=== PATIENT | male | born 1980 | race Caucasian/White ===

== ENCOUNTER 2020-07-15 07:44 | Inpatient (IN) ==
[2020-07-15] MEDS ORDERED: 0.9 % Sodium Chloride 1,000 ML IVC ONE (07:53)
[2020-07-15 08:16] LABS: Basophils % 0.6 %; Eosinophils # 0.2 K/mcL (0.0-0.6); Eosinophils % 2.8 %; Hematocrit 44.6 % (37.5-50.1); Hemoglobin 14.8 g/dL (12.9-16.9); Immature Granulocytes % 0.3 % (0-4); Lymphocytes # 1.5 K/mcL (0.6-4.6); Lymphocytes % 22.7 %; Mean Corpuscular HGB Conc 33.2 g/dL (31.6-35.5); Mean Corpuscular Hemoglobin 29.5 pg (28.0-33.3); Mean Platelet Volume 10.3 fL (9.4-12.4); Monocytes # 0.4 K/mcL (0.0-1.3); Monocytes % 5.2 %; Neutrophils # 4.6 K/mcL (1.6-8.9); Platelet Count 216 K/mcL (140-400); Red Blood Count 5.01 M/mcL (4.19-5.50); Red Cell Distribution Width 12.6 % (11.5-14.5); Segmented Neutrophils % 68.4 %; White Blood Count 6.8 K/mcL (4.3-11.1)
[2020-07-15 08:21] LABS: INR 1.2
[2020-07-15] MEDS ORDERED: Isovue-370 500 ML BOTTLE IVP ONE (08:26)
[2020-07-15 08:33] LABS: BUN/Creatinine Ratio 14 (6-26); Blood Urea Nitrogen 15 mg/dL (6-20); Calcium 9.7 mg/dL (8.6-10.3); Carbon Dioxide 26 mEq/L (23-29); Chloride 105 mEq/L (98-107); Glucose 129 mg/dL (70-105); Osmolality,Calculated 289 (280-300); Potassium 4.3 mEq/L (3.5-5.1); Sodium 138 mEq/L (136-145); eGFR For African Americans > 60 (> 60); eGFR For Non-African Americans > 60 (> 60)
[2020-07-15 08:34] LABS: Troponin I < 0.03 ng/mL (< 0.04)
[2020-07-15 09:29] LABS: Adenovirus DETECTED (Not Detect); Bordetella Pertussis Not Detected (Not Detect); Chlamydophila pneumoniae Not Detected (Not Detect); Coronavirus 229E Not Detected (Not Detect); Coronavirus HKU1 Not Detected (Not Detect); Coronavirus NL63 Not Detected (Not Detect); Coronavirus OC43 Not Detected (Not Detect); Human Metapneumovirus Not Detected (Not Detect); Human Rhinovirus/Enterovirus Not Detected (Not Detect); Influenza A Subtype 2009 H1 Not Detected (Not Detect); Influenza B Not Detected (Not Detect); Mycoplasma pneumoniae Not Detected (Not Detect); Parainfluenza Virus 1 Not Detected (Not Detect); Parainfluenza Virus 2 Not Detected (Not Detect); Parainfluenza Virus 3 Not Detected (Not Detect); Parainfluenza Virus 4 Not Detected (Not Detect); Respiratory Syncytial Virus Not Detected (Not Detect); SARS-CoV-2 Not Detected (Not Detect)
[2020-07-15] MEDS ORDERED: Ondansetron 4 MG/2 ML VIAL IVP PRN (09:45)
[2020-07-15] MEDS ORDERED: Ibuprofen 400 MG TABLET PO PRN (09:45)
[2020-07-15] MEDS ORDERED: Furosemide 40 MG/4 ML VIAL IVP ONE ×2 (09:47→09:57)
[2020-07-15] MEDS ORDERED: Perflutren Lipid Microsphere 1.3 ML in 0.9 % Sodium Chloride 8.7 ML IVP PRN (09:47)
[2020-07-15 10:17] LABS: Alanine Aminotransferase 36 Units/L (7-52); Albumin 4.8 g/dL (3.5-5.7); Albumin/Globulin Ratio 2.1 (1.1-2.2); Alkaline Phosphatase 78 Units/L (34-104); Aspartate Amino Transferase 26 Units/L (13-39); Bilirubin,Direct 0.2 mg/dL (0.0-0.2); Bilirubin,Indirect 0.5 mg/dL (0.0-1.0); Bilirubin,Total 0.7 mg/dL (0.3-1.0); Globulin 2.3 g/dL (2.4-3.5); Magnesium 2.2 mg/dL (1.6-2.6); Total Protein 7.1 g/dL (6.4-8.9)
[2020-07-15] MEDS ORDERED: Metoprolol XL (24 HR) Succ 25 MG TAB.ER.24H PO SCH (15:00)
[2020-07-15] MEDS ORDERED: Furosemide 40 MG/4 ML VIAL IVP SCH (15:00)
[2020-07-15] MEDS: Furosemide 40 MG/4 ML VIAL IVP SCH (21:31)
[2020-07-16 03:42] LABS: Hematocrit 43.6 % (37.5-50.1); Hemoglobin 14.5 g/dL (12.9-16.9); Mean Corpuscular HGB Conc 33.3 g/dL (31.6-35.5); Mean Corpuscular Volume 87.2 fL (83.0-100.0); Mean Platelet Volume 10.4 fL (9.4-12.4); Platelet Count 215 K/mcL (140-400); Red Cell Distribution Width 12.5 % (11.5-14.5)
[2020-07-16 04:28] LABS: BUN/Creatinine Ratio 15 (6-26); Blood Urea Nitrogen 17 mg/dL (6-20); Calcium 9.5 mg/dL (8.6-10.3); Carbon Dioxide 25 mEq/L (23-29); Chloride 102 mEq/L (98-107); Chol/HDL Ratio 2.7 (0-4.9); Cholesterol 119 mg/dL (< 200); Glucose 126 mg/dL (70-105); HDL Cholesterol 44 mg/dL (40-59); LDL Cholesterol,Calculated 57 mg/dL (< 100); Magnesium 2.2 mg/dL (1.6-2.6); Osmolality,Calculated 289 (280-300); Potassium 3.7 mEq/L (3.5-5.1); Sodium 138 mEq/L (136-145); Triglycerides 89 mg/dL (< 150); Troponin I < 0.03 ng/mL (< 0.04); eGFR For African Americans > 60 (> 60); eGFR For Non-African Americans > 60 (> 60)
[2020-07-16] MEDS: *HR* Enoxaparin 40 MG/0.4 ML SYRINGE SQ SCH (05:55)
[2020-07-16] MEDS: Furosemide 40 MG/4 ML VIAL IVP SCH ×3 (05:56→20:40)
[2020-07-16] MEDS: Metoprolol XL (24 HR) Succ 25 MG TAB.ER.24H PO SCH (08:44)
[2020-07-16] MEDS ORDERED: *HR* Heparin 10,000 UNIT/10 ML VIAL ONE (12:43)
[2020-07-16] MEDS ORDERED: Heparin 1,000 UNITS/500 mL 500 ML ONE (12:43)
[2020-07-16] MEDS ORDERED: ISOVUE-370 200 ML INFUS..BTL ONE (12:44)
[2020-07-16] MEDS ORDERED: Nitroglycerin 1,000 MCG/10 ML VIAL IV ONE (12:44)
[2020-07-16] MEDS ORDERED: 0.9 % Sodium Chloride 2,000 ML ONE (12:44)
[2020-07-16] MEDS ORDERED: *HR* Midazolam HCl 2 MG/2 ML VIAL ONE (13:20)
[2020-07-16] MEDS ORDERED: *HR* FentaNYL (PF) 100 MCG/2 ML VIAL ONE (13:20)
[2020-07-16] MEDS ORDERED: Acetaminophen 325 MG TABLET PO PRN (16:36)
[2020-07-17] MEDS: Furosemide 40 MG/4 ML VIAL IVP SCH (05:02)
[2020-07-17] MEDS: *HR* Enoxaparin 40 MG/0.4 ML SYRINGE SQ SCH (05:02)
[2020-07-17 05:22] LABS: Hematocrit 45.7 % (37.5-50.1); Hemoglobin 15.7 g/dL (12.9-16.9); Mean Corpuscular HGB Conc 34.4 g/dL (31.6-35.5); Mean Corpuscular Hemoglobin 29.7 pg (28.0-33.3); Mean Corpuscular Volume 86.4 fL (83.0-100.0); Mean Platelet Volume 10.3 fL (9.4-12.4); Platelet Count 232 K/mcL (140-400); Red Blood Count 5.29 M/mcL (4.19-5.50); Red Cell Distribution Width 12.4 % (11.5-14.5); White Blood Count 7.2 K/mcL (4.3-11.1)
[2020-07-17 05:37] LABS: BUN/Creatinine Ratio 19 (6-26); Blood Urea Nitrogen 21 mg/dL (6-20); Calcium 9.6 mg/dL (8.6-10.3); Carbon Dioxide 26 mEq/L (23-29); Chloride 100 mEq/L (98-107); Glucose 120 mg/dL (70-105); Osmolality,Calculated 286 (280-300); Sodium 136 mEq/L (136-145); eGFR For African Americans > 60 (> 60); eGFR For Non-African Americans > 60 (> 60)
[2020-07-17] MEDS: Metoprolol XL (24 HR) Succ 25 MG TAB.ER.24H PO SCH ×2 (08:16→21:00)
[2020-07-17] MEDS ORDERED: Metoprolol XL (24 HR) Succ 25 MG TAB.ER.24H PO SCH (09:00)
[2020-07-17] MEDS: Furosemide 20 MG TABLET PO SCH (09:59)
[2020-07-17 13:11] LABS: Estimated Average Glucose 131 mg/dl
[2020-07-18 01:57] LABS: Hemoglobin 15.1 g/dL (12.9-16.9); Mean Corpuscular HGB Conc 33.6 g/dL (31.6-35.5); Mean Corpuscular Hemoglobin 29.2 pg (28.0-33.3); Mean Platelet Volume 10.5 fL (9.4-12.4); Platelet Count 236 K/mcL (140-400); Red Blood Count 5.17 M/mcL (4.19-5.50); Red Cell Distribution Width 12.3 % (11.5-14.5)
[2020-07-18] MEDS: *HR* Enoxaparin 40 MG/0.4 ML SYRINGE SQ SCH (05:17)
[2020-07-18 06:52] VITALS: BP 112/77
[2020-07-18] MEDS: Metoprolol XL (24 HR) Succ 25 MG TAB.ER.24H PO SCH (08:18)
[2020-07-18] MEDS: Furosemide 20 MG TABLET PO SCH (08:18)
[2020-07-18] MEDS ORDERED: FLU Vac QV 20-21 (6Month+)/PF 0.5 ML SYRINGE IM ONE (10:00)
== END 2020-07-18 11:05 | disposition home or self-care (01) | DRG 192 ==
LOC: EMEROOARM 07:44 → 3BNU 07:44
PROVIDERS: ADMIT Internal Medicine; ATTEND Internal Medicine